=== PATIENT | female | born 1945 | race Caucasian/White ===

== ENCOUNTER → 2017-12-25 | Outpatient (REF) | payer MEDICARE ==
[2017-12-25 16:26] LABS: BASO # 0.1 10^3/uL (0.0-0.2); BASO % 0.7 % (0.0-1.0); EOS # 0.2 10^3/uL (0.0-0.50); EOS % 2.8 % (0.0-3.0); HEMATOCRIT 36.5 % (36.0-47.0); HEMOGLOBIN 10.9 g/dl (12.0-15.5); IMMATURE GRANULOCYTE % 0.1 % (0-3.0); LYMPH # 1.1 10^3/uL (1.5-4.5); LYMPH % 12.9 % (24.0-44.0); MEAN CORPUSCULAR HEMOGLOBIN 26.7 pg (27.0-33.0); MEAN CORPUSCULAR HGB CONC 29.9 g/dl (32.0-36.5); MEAN CORPUSCULAR VOLUME 89.5 fl (80.0-96.0); MONO # 0.7 10^3/uL (0.0-0.8); MONO % 8.7 % (0.0-5.0); NEUTROPHILS # 6.1 10^3/uL (1.8-7.7); NEUTROPHILS % 74.8 % (36.0-66.0); PLATELET COUNT, AUTOMATED 342 10^3/uL (150-450); RED BLOOD COUNT 4.08 10^6/uL (4.00-5.40); RED CELL DISTRIBUTION WIDTH 15.1 % (11.5-14.5); WHITE BLOOD COUNT 8.1 10^3/uL (4.0-10.0)
[2017-12-25 16:29] LABS: C REACTIVE PROTEIN QUANTITATIV 2.49 MG/DL (0.00-0.30); IRON (FE) 46 UG/DL (50-170); PERCENT SATURATION 15.2 % (13.2-45.0); TOTAL IRON BINDING CAPACITY 302 UG/DL (250-450)
[2017-12-25 16:40] LABS: FOLATE 16.2 NG/ML; VITAMIN B12 LEVEL 437 PG/ML
[2017-12-25 17:26] LABS: ERYTHROCYTE SEDIMENTATION RATE 79 mm/hr (0-30)
== END ==
LOC: M SFHCPLAZ 12:19
DX: D64.9 Anemia, unspecified (principal)
CPT/HCPCS: 82746

== ENCOUNTER → 2018-08-14 | Outpatient (CLI) | payer MEDICARE ==
--- NOTE | 2018-08-15 09:29 | REP ---
PET/CT: HISTORY: Solitary pulmonary nodule. COMPARISONS: Comparison CT study of the chest from [facility] is reviewed dated July 29, 2018. Spiculated nodule left lower lobe. TECHNIQUE: 60 minutes following the intravenous injection of a 7.23 mCi dose of F-18 FDG, three-dimensional PET scintigraphy is acquired from the skull base to the proximal thighs. Triplanar noncontrast CT scanning is acquired through the same anatomic range for attenuation correction, and image registration with scan parameters optimized to minimize radiation exposure to the patient. PET scintigraphy and CT datasets were fused and displayed on a workstation with multiplanar and projection display capability. PET/CT FINDINGS: Head and neck soft tissues are unremarkable. There is no hypermetabolic hilar or mediastinal mass or adenopathy. The spiculated nodule in the left lower lobe does not show hypermetabolic uptake. Maximum standard uptake value in it is 0.92. No other abnormal pulmonary parenchymal hypermetabolic uptake is seen. No adrenal hypermetabolic uptake is seen. In the abdomen and pelvis normal hepatic, splenic, gastrointestinal, and genitourinary hypermetabolic uptake is seen. There is a parastomal hernia adjacent to a left lower quadrant enterostomy. No abnormal joselo uptake is seen. No abnormal skeletal uptake is observed. IMPRESSION: The spiculated nodule seen in the left lower lobe is not hypermetabolic. This does not exclude a malignant etiology. Interval followup is advised if histologic sampling is not performed. Electronically Signed by Reagan Canales MD 08/15/2018 11:10 A
== END ==
LOC: M PLARAD 08:10
PROVIDERS: ATTEND Internal Medicine Pulmonary Disease
DX: R91.1 Solitary pulmonary nodule (principal)
CPT/HCPCS: 78815; A9552